=== PATIENT | female | born 1965 | race Caucasian/White ===

== ENCOUNTER → 2022-12-22 | Outpatient (CLI) | payer BC | LOC: M RAD 10:40 | PROVIDERS: ATTEND Family Medicine | DX: R20.9 Unspecified disturbances of skin sensation (principal); R41.0 Disorientation, unspecified; M50.123 Cervical disc disorder at C6-C7 level with radiculopathy; R93.0 Abnormal findings on diagnostic imaging of skull and head, not elsewhere classified ==